=== PATIENT | male | born 1960 | race Caucasian/White ===

== ENCOUNTER 2020-12-09 14:20 | Outpatient (REF) | payer OTHER, SELFPAY ==
[2020-12-09 16:19] LABS: MANUAL DIFF FLAG NO
[2020-12-09 16:23] LABS: Basophils Percent Auto 0.7 % (0-2); Eosinophils Percent Auto 0.3 % (0-4); Hematocrit 45.7 % (42-52); Hemoglobin 15.6 g/dl (14.0-18.0); Imm Gran Abs Auto 0.01 X10*3/uL (0.00-0.03); Imm Gran Pct Auto 0.2 % (0.0-0.4); Lymphocytes Absolute Auto 1.3 X10*3/uL (1.2-4.9); Lymphocytes Percent Auto 21.3 % (20-40); Mean Corpuscular HGB Conc 34.1 g/dl (31.0-36.0); Mean Corpuscular Hemoglobin 30.2 pg (27.0-33.0); Mean Corpuscular Volume 88.4 fL (80-98); Mean Platelet Volume 10.9 fL (9.4-12.4); Monocytes Absolute Auto 0.3 X10*3/uL (0.1-1.2); Monocytes Percent Auto 5.5 % (2-11); Neutrophils Absolute Auto 4.3 X10*3/uL (2.0-8.3); Platelet Count 210 X10*3/uL (160-400); Red Blood Count 5.17 X10*6/uL (4.60-5.80); Red Cell Distribution Width 12.7 % (11.0-16.0)
[2020-12-09 16:34] LABS: Alanine Aminotransferase 26 U/L (0-40); Albumin Level 4.5 g/dL (3.5-5.0); Alkaline Phosphatase 99 U/L (39-117); Amylase 51 U/L (28-100); Anion Gap 15 (12-20); Aspartate Amino Transferase 17 U/L (5-37); Bilirubin Total 0.7 mg/dL (0.0-1.0); Blood Urea Nitrogen 13 mg/dL (9-16); Carbon Dioxide 25 mmol/L (22-29); Chloride 101 mmol/L (96-108); Estimated Glomerular Filt Rate > 60; Glucose Random 292 mg/dL (60-115); Lipase 24 U/L (8-78); Potassium 4.1 mmol/L (3.3-5.1); Sodium 137 mmol/L (135-145); Total Protein 7.5 g/dL (6.5-8.0)
== END 2020-12-09 14:21 | disposition home or self-care (01) ==
LOC: HO.HMGCLDS 14:20
PROVIDERS: Visit Provider Nurse Practitioner Family
DX: R10.9 Unspecified abdominal pain (principal)
CPT/HCPCS: 36415; 80053; 82150; 83690; 85025

== ENCOUNTER 2020-12-09 14:40 | Outpatient (REF) | payer OTHER, SELFPAY ==
--- NOTE | ~2020-12-09 | US_ITS ---
EXAMINATION: US ABDOMEN LIMITED CLINICAL INFORMATION: R10.9 - Unspecified abdominal pain. COMPARISON: None TECHNIQUE: Real-time imaging of the right upper quadrant abdominal viscera. FINDINGS: PANCREAS: The visualized pancreas is normal in size and contour and uniform in echogenicity. There is no pancreatic ductal distention. No retroperitoneal effusion. LIVER: The liver is within limits of normal size and smooth in contour. There is increased hepatic parenchymal echogenicity consistent with hepatic steatosis. There is no focal hepatic parenchymal lesion or intrahepatic ductal dilatation. GALLBLADDER: The gallbladder is anechoic and shows no stone or sludge or wall thickening. No pericholecystic fluid. Small incidental phrygian cap suggested near fundus. COMMON BILE DUCT: Normal in caliber measuring 0.3 cm in diameter. RIGHT KIDNEY: The right kidney measures 12.7 cm in length. There is no hydronephrosis or caliectasis. Renal parenchymal thickness and echogenicity are normal. Nonobstructing renal parenchymal calcification is suggested upper pole measuring 0.5 cm with twinkling artifact on color Doppler. There are 2 small cysts interpolar region of each approximately 1.2 cm. FREE FLUID: None. US/US abdomen limited IMPRESSION: 1. No cholelithiasis or biliary ductal dilatation. 2. No right hydronephrosis. Nonobstructing calcification upper pole 0.5 cm. 3. Hepatic steatosis.
== END 2020-12-09 14:41 | disposition home or self-care (01) ==
LOC: HO.HMGCX 14:40
PROVIDERS: Visit Provider Nurse Practitioner Family
DX: R10.13 Epigastric pain (principal); R10.11 Right upper quadrant pain
CPT/HCPCS: 76705